=== PATIENT | female | born 1955 | race Caucasian/White ===

== ENCOUNTER 2023-03-02 08:37 | Day surgery (SDC) | payer BC, MEDICARE ==
[2023-03-02] MEDS ORDERED: Propofol 200 MG/20 ML SDV ONE ×2 (08:39→10:52)
[2023-03-02] MEDS ORDERED: fentaNYL 100 MCG/2 ML SDV ONE (08:39)
[2023-03-02] MEDS ORDERED: Lactated Ringers 1,000 ML IV SCH (09:00)
== END 2023-03-02 12:10 | disposition home or self-care (01) ==
LOC: JP.SDS 08:37
PROVIDERS: ATTEND Student in an Organized Health Care Education/Training Program
DX: R10.10 Upper abdominal pain, unspecified (principal); Z88.5 Allergy status to narcotic agent
CPT/HCPCS: 43239; J2704; J3010; J7120